=== PATIENT | male | born 1985 | race Caucasian/White ===

== ENCOUNTER → 2017-06-01 | Outpatient (CLI) | payer OTHER ==
[~2017-06-01] MED LIST: OMNIPAQUE 350 MG/ML, 100ML BOTTLE ONE
== END | disposition home or self-care (01) ==
LOC: RAD 16:23
PROVIDERS: ATTEND Family Medicine
DX: R22.1 Localized swelling, mass and lump, neck (principal)
CPT/HCPCS: 70491; Q9967

== ENCOUNTER 2021-04-08 15:23 | Emergency (ER) | payer OTHER ==
[~2021-04-08] VITALS: Ht 177.8 cm; Wt 85.0 kg
[2021-04-08 15:52] VITALS: BP 142/104
[2021-04-08 17:14] LABS: BASOPHILS % (AUTO) 1 % (0-1); EOSINOPHILS % (AUTO) 0 % (1-7); LYMPHOCYTES % (AUTO) 19 % (22-44); MEAN CORPUSCULAR HEMOGLOBIN 35.3 pg (27.5-34.5); MEAN PLATELET VOLUME 7.1 fL (7.4-10.4); MONOCYTES % (AUTO) 10 % (2-9); NEUTROPHILS % (AUTO) 71 % (42-75); PLATELET COUNT 187 x10^3/uL (130-400); RED BLOOD COUNT 4.73 x10^6/uL (4.38-5.82); RED CELL DISTRIBUTION WIDTH 13.3 % (9.4-14.8)
[2021-04-08 17:15] LABS: ALANINE AMINOTRANSFERASE 59 U/L (12-78); ALBUMIN 4.1 g/dL (3.4-5.0); ANION GAP 9 mmol/L (5-15); CALCIUM 8.8 mg/dL (8.5-10.1); CHLORIDE 104 mmol/L (98-107); CREATININE 0.76 mg/dL (0.7-1.3)
[2021-04-08 17:17] LABS: ALKALINE PHOSPHATASE 89 U/L (45-117); BILIRUBIN,TOTAL 0.9 mg/dL (0.2-1.0); TOTAL PROTEIN 7.8 g/dL (6.4-8.2)
--- NOTE | 2021-04-08 17:23 | NUR ---
Pt BACK FROM TRIAGE WITH CHIEF COMPLAINT OF FEELING ILL, CHILLS, NAUSEA. PT DENIES CP, OR SOB.
--- NOTE | 2021-04-08 17:31 | NUR ---
TASK RN:ARIC MEDRANO SENT
[2021-04-08] MEDS ORDERED: ONDANSETRON ODT 4 MG ONE (17:35)
--- NOTE | 2021-04-08 17:37 | NUR ---
TASK RN:MEDICATED PER EMAR FOR NAUSEA
[2021-04-08 17:55] LABS: MICROSCOPIC INDICATED
[2021-04-08] MEDS ORDERED: ONDANSETRON ODT 4 MG PO ONE (18:00)
--- NOTE | 2021-04-08 18:05 | NUR ---
CHRISTIAN Patricio at bedside to discuss POC
--- NOTE | 2021-04-08 18:39 | NUR ---
DC INSTRUCTIONS REVIEWED
== END 2021-04-08 18:40 | disposition home or self-care (01) ==
LOC: ED 18:10
DX: B34.9 Viral infection, unspecified (principal); Z20.822 Contact with and (suspected) exposure to COVID-19; R06.02 Shortness of breath
CPT/HCPCS: 36415; 71045; 80053; 81001; 85025; 99284; Q0162; U0003; U0005

== ENCOUNTER 2021-05-17 11:27 | Outpatient (CLI) | payer OTHER ==
[2021-05-17 11:51] LABS: ALANINE AMINOTRANSFERASE 62 U/L (12-78); ALBUMIN 3.8 g/dL (3.4-5.0); ANION GAP 8 mmol/L (5-15); CALCIUM 8.7 mg/dL (8.5-10.1); CHLORIDE 108 mmol/L (98-107)
[2021-05-17 11:54] LABS: ALKALINE PHOSPHATASE 79 U/L (45-117); BILIRUBIN,TOTAL 0.9 mg/dL (0.2-1.0); CHOL/HDL RATIO 3.4; CHOLESTEROL, TOTAL 186 mg/dL (140-239); CREATININE 0.78 mg/dL (0.7-1.3); HDL CHOL % 30 % (26-37); HDL CHOLESTEROL (DIRECT) 55 mg/dL (40-60); LDL CHOLESTEROL,CALCULATED 64 mg/dL (54-169); LDL/HDL RATIO 1.2 (0.5-3.0); TOTAL PROTEIN 7.1 g/dL (6.4-8.2); TRIGLYCERIDES 336 mg/dL (50-200); VLDL CHOLESTEROL 67 mg/dL (0-25)
== END 2021-05-17 23:59 | disposition home or self-care (01) ==
LOC: LAB 11:27
PROVIDERS: ATTEND Family Medicine
DX: E78.5 Hyperlipidemia, unspecified (principal)
CPT/HCPCS: 36415; 80053; 80061